=== PATIENT | male | born 1995 | race Two or more races ===

== ENCOUNTER 2020-04-13 05:35 | Emergency (ER) | payer SELFPAY ==
[2020-04-13 05:39] VITALS: BP 112/64; PULSE 77; RESP 17; TEMP 37; O2SAT 96; BMI 27.7
--- NOTE | 2020-04-13 06:43 | ED.BACK ---
HPI - Back Pain/Injury General Chief Complaint: Back Pain/Injury Stated Complaint: back pain Time Seen by Provider: 04/13/20 06:07 Source: patient Mode of arrival: ambulatory Limitations: no limitations History of Present Illness HPI Narrative: Patient with lumbar arthritis had MRI last year received cortisone shot came here for increasing pain for last 1 week without any known trauma no muscle weakness no sensory loss feels pain going to the l leg and upper back ambulatory as such no bladder or bowel incontinence MD elicited complaint: back pain Pertinent past history: prior back pain Onset (ago): week(s) (1) Timing: constant Severity: moderate Quality: sharp Location: lumbar spine Radiation: left upper leg Exacerbating factors: movement Relieving factors: immobilization Associated symptoms: denies other symptoms Related Data Home Medications Medication Instructions Recorded Confirmed meloxicam 1 tab PO DAILY 04/13/20 04/13/20 Previous Rx's Medication Instructions Recorded cyclobenzaprine 10 mg PO Q8H #20 tab 04/13/20 prednisone 40 mg PO DAILY #10 tab 04/13/20 Allergies Allergy/AdvReac Type Severity Reaction Status Date / Time No Known Allergies Allergy Verified 04/13/20 05:49 Review of Systems Review of Systems: Constitutional : No Weight loss, No Fever, No Chills ENT/Mouth : No sore throat, No Rhinorrhea Eyes: No Eye Pain, No Swelling Cardiovascular : No Chest Pain, no palpitations Respiratory : No Cough, No Sputum, no shortness of breath Gastrointestinal : no Nausea, No Vomiting, No Diarrhea, No abdominal Pain, no black stools Genitourinary : No Dysuria, No Urinary Frequency Musculoskeletal : No joint pain, No Myalgias, No Joint Swelling Skin : No Skin Lesions, No rash Neuro : No Weakness, No Numbness, No Dizziness, No Headache Psych : No Anxiety/Panic, No Depression Heme/Lymph: No Bruising, No Lymphadenopathy Endocrine : No Polyuria, No Polydipsia All other systems reviewed and are negative PMFSH Past Medical History Medical History No known health problems Social History Social History Advance Directives: No Advance Directives Information Provided: No Physical Exam Vital Signs: Vital Signs: Last Vital Signs Temp 98.6 F 04/13/20 05:39 Pulse 77 01/24/21 05:39 Resp 17 04/13/20 05:39 BP 112/64 04/13/20 05:39 Pulse Ox 96 04/13/20 05:39 Body Mass Index 27.7 Const: General: comfortable and no acute distress Orientation/consciousness: patient oriented x3 HENMT: Head: Yes normocephalic and Yes atraumatic Eyes: General: appearance normal, both eyes and all related structures Neck: Neck: Yes normal visual inspection Resp: Effort & Inspection: normal respiratory effort Auscultation: clear to auscultation bilaterally, no crackles and no rales Cardio: Palpation: normal PMI Rate: regular rate Rhythm: regular rhythm Heart sounds: S1 normal heart sound present and S2 normal heart sound present GI: Inspection: Yes normal to inspection Palpation (GI): Soft to palpation and nontender : General: Yes no CVA tenderness Back/Spine/Pelvis: Back: no CVA tenderness Thoracic/Lumbar Spine: straight leg raise negative bilaterally, paraspinal muscle tenderness, No thoracic spinal tenderness and No lumbar spinal tenderness Neuro: General: patient oriented x3, moves all extremities and no focal motor deficits Course Course Course Narrative: Patient with chronic low back pain flared up for last 1 week without any injury clinically no signs of spinal cord in involvement no signs of impingement on nerve roots. Will discharge him on short course of prednisone along with muscle relaxant patient already has meloxicam at home Discharge Plan Discharge Clinical Impression: Strain of lumbar region Qualifiers: Encounter type: initial encounter Qualified Code(s): S39.012A - Strain of muscle, fascia and tendon of lower back, initial encounter Patient Disposition: Home, Self-Care Instructions: Low Back Strain (ED) Additional Instructions: take Medication as prescribed and follow with PCP Prescriptions: New cyclobenzaprine 10 mg tablet 10 mg PO Q8H Qty: 20 RF: 0 prednisone 20 mg tablet 40 mg PO DAILY Qty: 10 RF: 0 No Action meloxicam 15 mg tablet 1 tab PO DAILY RF: 0 Stand Alone Forms: Work/School Release
[2020-04-13] MEDS: Cyclobenzaprine HCl 10 MG TABLET PO (07:29)
[2020-04-13] MEDS: Ketorolac Tromethamine 60 MG/2 ML VIAL IM (07:29)
[2020-04-13] MEDS: dexAMETHasone 2 MG TABLET 10 MG PO (07:29)
== END 2020-04-13 07:34 | disposition home or self-care (01) ==
PROVIDERS: Emergency Provider Internal Medicine; PCP Internal Medicine
DX: S39.012A Strain of muscle, fascia and tendon of lower back, initial encounter (principal); X58.XXXA Exposure to other specified factors, initial encounter; Y93.9 Activity, unspecified; Y92.9 Unspecified place or not applicable; Y99.9 Unspecified external cause status; Z79.899 Other long term (current) drug therapy
CPT/HCPCS: 96372; 99283; 99284; J1885; J8540